=== PATIENT | female | born 1965 | race Caucasian/White ===

== ENCOUNTER 2018-01-15 16:33 | Emergency (ER) | payer BC ==
[~2018-01-15] VITALS: Ht 144.8 cm; Wt 81.9 kg
[2018-01-15 16:45] VITALS: TEMP 36.7; Ht 144.8 cm; Wt 81.9 kg
--- NOTE | 2018-01-15 17:21 | EMERGENCY ROOM VISIT NOTE ---
History Report prepared by Suzi: Gonzalo West Under the Supervision of: Dr. Abhijeet Harvey M.D. First contact with patient: 17:02 Chief Complaint: FACIAL PAIN/INJURY Stated Complaint: NUMBNESS L SIDE OF FACE History of Present Illness The patient is a 52 year old female who presents to the Emergency Room with complaints of constant left sided facial numbness and inability to move the left face starting yesterday. The patient states that yesterday she was having some left facial twitching, and she did not have any pain. She notes that today she noticed that her left eye was dry, and she was unable to blink with her left eye. The patient states that she does not have tongue numbness. She denies any left arm or left leg numbness, fever, chills, and headache. She notes that she has had a cough. She states that she has never had a tick bite. The patient states that she recently had her metoprolol dose changed, she takes valsartan, Crestor, and aspirin Source of History: patient Onset: yesterday Position: other (left face) Quality: numbness, other (inability to move) Timing: constant Associated Symptoms: + cough, No fevers, No chills, No headache Note: Associated symptoms: Left face twitching and inability to blink. Review of Systems See HPI for pertinent positives & negatives. A total of 10 systems reviewed and were otherwise negative. Past Medical & Surgical Medical Problems: (1) Heart disease Surgical Problems: (1) History of tonsillectomy (2) Hx of cardiac catheterization (3) Hx of section Family History Cancer Diabetes mellitus FH: heart disease FHx: lung disease Hypertension Social History Smoking Status: Never Smoker Marital Status: Housing Status: lives with family Occupation Status: employed Current/Historical Medications Scheduled Aspirin (Aspirin Ec), 81 MG PO HS Methylprednisolone (Medrol Dosepak), 1 PKT PO UD Metoprolol Succ (Toprol Xl) (Toprol-Xl), 75 MG PO HS Rosuvastatin Calcium (Crestor), 20 MG PO HS Valacyclovir Hcl (Valtrex), 1,000 MG PO TID Valsartan (Diovan), 40 MG PO HS Allergies Coded Allergies: Latex (Unverified Allergy, Unknown, ANAPHYLAXIS, 01/15/18) Physical Exam Vital Signs Date Time Temp Pulse Resp B/P (MAP) Pulse Ox O2 Delivery O2 Flow Rate FiO2 01/15/18 19:02 82 17 137/86 97 Room Air 01/15/18 18:34 82 01/15/18 16:45 36.7 83 20 154/107 99 Room Air Physical Exam GENERAL: Patient is in no acute distress. HEENT: No acute trauma, normocephalic atraumatic, mucous membranes moist, no nasal congestion, no scleral icterus. NECK: No stridor, no adenopathy, no meningismus, trachea is midline. LUNGS: Clear to auscultation bilaterally, no wheeze, no rhonchi, breath sounds equal. HEART: Without murmurs gallops or rubs, regular rate and rhythm. ABDOMEN: Soft, nontender, bowel sounds positive, no hernias, no peritonitis. EXTREMITIES: No cyanosis or edema, full range of motion of all the joints without pain or difficulty, no signs for acute trauma. NEUROLOGIC: Awake, alert, no focal extremity motor deficits, oriented x3. Very subtle left sided facial droop noticed mostly with speaking. Some difficulty noted when she tries to close her left eye. Frontalis muscles bilaterally are intact. No pronator drift or cerebellar dysfunction. SKIN: No rash, no jaundice, no diaphoresis. Medical Decision & Procedures ER Provider Diagnostic Interpretation: Radiology results as stated below per my review and radiologist interpretation: HEAD WITHOUT CONTRAST (CT) CLINICAL HISTORY: 52 years-old Female with left face numb. Acute left-sided facial numbness TECHNIQUE: Multiple axial CT images of the head were obtained without contrast. A dose lowering technique was utilized adhering to the principles of ALARA. CT DOSE: 537.48 mGy.cm COMPARISON: None. FINDINGS: No acute intracranial hemorrhage, midline shift, intracranial mass, hydrocephalus, territorial ischemia or abnormal extra-axial collection. The calvarium is intact. The paranasal sinuses, mastoid air cells, and middle ear cavities are clear. IMPRESSION: No acute intracranial abnormality. The above report was generated using voice recognition software. It may contain grammatical, syntax or spelling errors. Electronically signed by: Kevin Mcclure M.D. 01/15/2018 5:43 PM Dictated Date/Time: 01/15/2018 5:41 PM Laboratory Results 01/15/18 17:25 01/15/18 17:25 Test 01/15/18 17:03 01/15/18 17:25 Urine Color YELLOW Urine Appearance CLEAR (CLEAR) Urine pH 5.0 (4.5-7.5) Urine Specific [place] 1.008 (1.000-1.030) Urine Protein NEG (NEG) Urine Glucose (UA) NEG (NEG) Urine Ketones NEG (NEG) Urine Occult Blood NEG (NEG) Urine Nitrite NEG (NEG) Urine Bilirubin NEG (NEG) Urine Urobilinogen NEG (NEG) Urine Leukocyte Esterase SMALL (NEG) Urine WBC (Auto) 1-5 /hpf (0-5) Urine RBC (Auto) 0-4 /hpf (0-4) Urine Hyaline Casts (Auto) 1-5 /lpf (0-5) Urine Epithelial Cells (Auto) 10-20 /lpf (0-5) Urine Bacteria (Auto) NEG (NEG) Red Blood Count 4.70 M/uL (4.2-5.4) Mean Corpuscular Volume 88.3 fL (80-100) Mean Corpuscular Hemoglobin 28.7 pg (25-34) Mean Corpuscular Hemoglobin Concent 32.5 g/dl (32-36) RDW Standard Deviation 44.3 fL (36.4-46.3) RDW Coefficient of Variation 13.5 % (11.5-14.5) Mean Platelet Volume 9.0 fL (7.4-10.4) Anion Gap 8.0 mmol/L (3-11) Est Creatinine Clear Calc Drug Dose 93.1 ml/min Estimated GFR () 119.1 Estimated GFR (Non- 102.8 BUN/Creatinine Ratio 30.5 (10-20) Calcium Level 9.5 mg/dl (8.5-10.1) Thyroid Stimulating Hormone (TSH) 5.760 uIu/ml (0.300-4.500) Lyme Disease IgG Antibody NEG (NEG) Lyme Disease IgM Antibody NEG (NEG) Laboratory results reviewed by me. Medications Administered Medications (Trade) Dose Ordered Sig/Erick Route Start Time Stop Time Status Last Admin Dose Admin Prednisone (PredniSONE TAB) 40 mg NOW STAT PO 01/15/18 18:49 01/15/18 18:52 DC 01/15/18 19:01 40 MG Valacyclovir HCl (Valtrex Tab) 1,000 mg NOW ONCE PO 01/15/18 19:00 01/15/18 19:01 DC 01/15/18 19:02 1,000 MG ECG Per My Interpretation Indication: other (numbness) Rate (beats per minute): 80 Rhythm: sinus rhythm Findings: nonspecific-ST abn (diffuse), PVC, other (No ST elevation) ED Course 1701: The patient was evaluated in room C12. A complete history and physical exam was performed. 1803: I discussed the patient's case with Dr. Gerardo Gill, and said to give the patient acyclovir or Valtrex and prednisone if she can take it and eye drops. He recommends that she should follow up with ophthalmology and neurology. 1844: I reevaluated the patient, and she was doing well. I updated her on the results. 1848: Prednisone 40mg PO 1857: Reevaluated the patient. Discussed results and discharge instructions: she verbalized understanding and agreement. The patient is ready for discharge. 1899: Valtrex 1000mg PO Medical Decision Differential diagnoses include: Garcia's Palsy, intracranial bleeding, stroke, electrolyte imbalance, UTI, Lyme's disease, and syphilis There is no leukocytosis or concerning anemia. No significant electrolyte abnormality or kidney failure. Brain CT shows no acute bleed or mass-effect. TSH slightly elevated but not of any true concern as a cause for her symptoms today. Lyme disease testing was negative. RPR testing is pending. EKG shows a sinus rhythm with a PVC, no ischemia. On exam, the patient had no weakness to her extremities. 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 I discussed the case with the neurologist on-call. He recommended steroids, Valtrex, eyedrops, ophthalmology or eye doctor follow-up and then eventually neurology follow-up. I talked with the patient about her findings, she is being discharged. She was advised to wear glasses, no contacts. She was given a dose of prednisone orally as well as a dose of oral Valtrex prior to discharge. Medication Reconcilliation Current Medication List: was personally reviewed by me Blood Pressure Screening Patient's blood pressure: Elevated blood pressure Blood pressure disposition: Elevated BP felt to be situational Consults Time Called: 172 Consulting Physician: Dr. Neelima Medina Neurology Returned Call: 180 I discussed the patient's case with Dr. Gerardo Gill, and said to give the patient acyclovir or Valtrex and prednisone if she can take it and eye drops. He recommends that she should follow up with ophthalmology and neurology. Impression Primary Impression: Garcia's palsy Scribe Attestation The scribe's documentation has been prepared under my direction and personally reviewed by me in its entirety. I confirm that the note above accurately reflects all work, treatment, procedures, and medical decision making performed by me. Departure Information Dispostion Home / Self-Care Prescriptions Valacyclovir Hcl (VALTREX) 1 Gm Tab 1000 MG PO TID, #21 TAB Prov: Abhijeet Harvey M.D. 01/15/18 Methylprednisolone (MEDROL DOSEPAK) 4 Mg Gabe 1 PKT PO UD for 6 Days, #1 PKT Prov: Abhijeet Harvey M.D. 01/15/18 Forms HOME CARE DOCUMENTATION FORM, IMPORTANT VISIT INFORMATION Patient Instructions My [facility] [employer] Additional Instructions valtrex 3x per day for 1 week medrol dose pack--start tomorrow talk with your [facility] md for a neurology referral--we spoke with Dr. Neelima varghese ot eye drops to keep the eye moist see eye doctor this week as well lab testing was ok return if worsening
--- NOTE | 2018-01-15 17:44 | DIAGNOSTIC IMAGING REPORT ---
HEAD WITHOUT CONTRAST (CT) CLINICAL HISTORY: 52 years-old Female with left face numb. Acute left-sided facial numbness TECHNIQUE: Multiple axial CT images of the head were obtained without contrast. A dose lowering technique was utilized adhering to the principles of ALARA. CT DOSE: 537.48 mGy.cm COMPARISON: None. FINDINGS: No acute intracranial hemorrhage, midline shift, intracranial mass, hydrocephalus, territorial ischemia or abnormal extra-axial collection. The calvarium is intact. The paranasal sinuses, mastoid air cells, and middle ear cavities are clear. IMPRESSION: No acute intracranial abnormality. The above report was generated using voice recognition software. It may contain grammatical, syntax or spelling errors. Electronically signed by: Kevin Mcclure M.D. 01/15/2018 5:43 PM Dictated Date/Time: 01/15/2018 5:41 PM
[2018-01-15] MEDS ORDERED: ROSU20TA PO (17:46)
[2018-01-15] MEDS ORDERED: VALS40TA2 PO (17:46)
[2018-01-15] MEDS ORDERED: METO50TA8 PO (17:46)
[2018-01-15] MEDS ORDERED: ASPI81TA28 PO (17:46)
[2018-01-15 17:52] LABS: HEMATOCRIT 41.5 % (37-47); HEMOGLOBIN 13.5 g/dL (12.0-16.0); MEAN CELL VOLUME 88.3 fL (80-100); MEAN CORPUSCULAR HEMOGLOBIN 28.7 pg (25-34); MEAN CORPUSCULAR HGB CONC 32.5 g/dl (32-36); PLATELET COUNT 322 K/uL (130-400); RED CELL DISTRIBUTION WIDTH CV 13.5 % (11.5-14.5); RED CELL DISTRIBUTION WIDTH SD 44.3 fL (36.4-46.3); WHITE BLOOD COUNT 9.56 K/uL (4.8-10.8)
[2018-01-15 18:17] LABS: CALCIUM 9.5 mg/dl (8.5-10.1); CREATININE 0.61 mg/dl (0.60-1.20); POTASSIUM 3.9 mmol/L (3.5-5.1)
[2018-01-15] MEDS ORDERED: VALA1TAB2 PO (18:53)
[2018-01-15] MEDS ORDERED: METH4PAK PO (18:53)
[2018-01-15 19:02] VITALS: BP 137/86; PULSE 82; O2SAT 97
[2018-01-15 23:48] LABS: RAPID PLASMA REAGIN NONREACTIVE (NONREACT)
== END 2018-01-15 19:15 | disposition home or self-care (01) ==
LOC: C.EDB 16:36 → C.EDC 19:15
DX: G51.0 Bell's palsy (principal); I51.9 Heart disease, unspecified; Z80.9 Family history of malignant neoplasm, unspecified; Z83.3 Family history of diabetes mellitus; Z82.49 Family history of ischemic heart disease and other diseases of the circulatory system; Z83.6 Family history of other diseases of the respiratory system; Z79.82 Long term (current) use of aspirin; Z79.899 Other long term (current) drug therapy; Z91.040 Latex allergy status